=== PATIENT | male | born 1950 | race Caucasian/White ===

== ENCOUNTER 2020-09-30 07:04 | Day surgery (SDC) | payer MEDICARE, OTHER ==
[~2020-09-30] VITALS: Ht 193 cm; Wt 85.9 kg
[~2020-09-30 07:04] MED LIST: ACETAMINOPHEN325 M1 PO; ASPIRIN EC325 MG PO; CO Q-10 100 MG1 EACH; FISH OIL 1,0001 EAC1 PO; IBUPROFEN600 MG PO; LISINOPRIL20 MG; LORADAMED10 MG; METOPROLOL SUCC50 MG PO; OCUVITE TABLET1 EAC1 PO; PROBIOTIC1 EAC1; PROSTATE HEALT1 EAC1 PO; RED YEAST RICE600 MG; URINOZINC PROS1 EACH; VITAMIN D32000 UNIT PO; XANAX0.5 MG PO; ZETIA10 MG PO
[2020-09-30] MEDS ORDERED: CINNAMON500 MG PO (07:38)
--- NOTE | 2020-09-30 08:45 | NUR ---
09/30/20 0845 Juliana Jang 0833 PATIENT AWAKE OFF/ON. RESP EVEN AND UNLABORED, NC AT 2 LITERS. PATIENT DENIES PAIN OR NAUSEA.
--- NOTE | 2020-09-30 11:23 | OR ---
[facility] [address], [place] [address] Signed DATE OF OPERATION: 09/30/2020 SURGEON: Adalid Beebe MD PREOPERATIVE DIAGNOSES: 1. Personal history of colonic polyps, 2009. 2. Minimal sigmoid diverticulosis, 2014. 3. Mother with colon cancer at age 72. POSTOPERATIVE DIAGNOSES: 1. 4 mm polyp at 70 cm. 2. 4 mm polyp at 40 cm. 3. Minimal sigmoid diverticulosis. 4. Minimal external hemorrhoids. 5. Left prostate larger than right prostate. PROCEDURE: Colonoscopy with hot biopsy. ESTIMATED BLOOD LOSS: None. INDICATIONS: Leonardo is a 70-year-old gentleman asked to see me for followup colonoscopy. He has a personal history of colonic polyps as well as diverticulosis. We know his mother had colon cancer at age 72. In the office, I gave Fox pamphlet on colonoscopy. He understands the nature of the test along with its risks including, but not limited to gas bloating, crampy abdominal pain, bleeding, perforation requiring surgery, and missed diagnosis. He also understands the need for IV conscious sedation. He always takes Xanax prior to coming. However, he generally takes around 10 mg of Versed and 200 mcg of fentanyl to cover the case. He did that once again today. He had expressed understanding and wished to proceed. PROCEDURE NOTE: Donnell was taken into our endoscopy suite and placed in the left lateral decubitus position. Again, he took his Xanax before he came. He took 9 mg of Versed and 200 mcg of fentanyl to cover the case. A digital rectal exam was performed and he has a moderately enlarged indurated prostate gland. The left is certainly more prominent than the right. He also has small bilateral external hemorrhoids. He has good sphincter tone. He appears to have some sinus arrhythmia. He probably should review that more Electronically Signed By: ADALID BEEBE MD 09/30/20 1123 PATIENT NAME: WILMER THORNTON OPERATIVE REPORT DATE OF : 48 REPORT #: [id number] PHYSICIAN: ADALID BEEBE MD PCP: CHEIKH WOLF MD REPORT IS CONFIDENTIAL AND NOT TO BE RELEASED WITHOUT AUTHORIZATION [facility] [address], [place] [address] Signed closely with his primary care provider. The adult colonoscope had been inserted and advanced all around into the cecum under direct visualization of camera. It took some extra sedation and abdominal compression to get around hepatic flexure and down into the cecum itself. His prep was good. We could easily see the appendiceal orifice and the ileocecal valve. We took pictures throughout for photodocumentation. The scope was then slowly withdrawn. The two polyps were easily removed with a hot biopsy forceps. Once again, he has sigmoid diverticulosis. They were small in size, few in number, and scattered about. The rectum was unremarkable. Upon retroflexion of scope, there was no additional pathology noted above the anal canal. After this, the gas was suctioned out and the colonoscope removed. Wilmer tolerated procedure quite well. RECOMMENDATIONS: I will see Wilmer back in my office in 7 to 14 days to review his results. He might review his sinus arrhythmia with his primary care provider. Adalid Beebe MD ALB/MODL /[id number] cc: MD Cheikh Ling MD Copies: ADALID BEEBE MD, MALCOLM MD ~ Electronically Signed By: ADALID BEEBE MD 09/30/20 1123 PATIENT NAME: WILMER THORNTON OPERATIVE REPORT DATE OF : 48 REPORT #: [id number] PHYSICIAN: ADALID BEEBE MD PCP: CHEIKH WOLF MD REPORT IS CONFIDENTIAL AND NOT TO BE RELEASED WITHOUT AUTHORIZATION
--- NOTE | 2020-09-30 12:03 | EKG ---
[facility] [address] [place] [address] Signed Sinus bradycardia with premature atrial complexes in a pattern of bigeminy Otherwise normal ECG No previous ECGs available Confirmed by YOUSUF AVENDAÑO MD ([id number]) on 09/30/2020 12:03:20 PM Electronically Signed By: YOUSUF AVENDAÑO MD 09/30/20 1203 PATIENT NAME: NORBERTOAKIKO M Electrocardiogram DATE OF : 48 PHYSICIAN: YOUSUF AVENDAÑO MD REPORT #: [id number] REPORT IS CONFIDENTIAL AND NOT TO BE RELEASED WITHOUT AUTHORIZATION
--- NOTE | 2020-10-01 15:02 | PATH ---
[facility] [address], [place] [address] Signed SPECIMEN(S): A COLON POLYP 70 CM SPECIMEN(S): B COLON POLYP 40 CM SPECIMEN SOURCE: A. COLON POLYP 70 CM B. COLON POLYP 40 CM CLINICAL HISTORY: Follow up colonoscopy for history of polyps/diverticulosis; external hemorrhoids; colon polyps. MICROSCOPIC DESCRIPTION: Histologic sections of all submitted blocks are examined by light microscopy. These findings, together with the gross examination, support the pathologic diagnosis. FINAL PATHOLOGIC DIAGNOSIS: A. Colon, polyp at 70 cm, polypectomy: - Tubular adenoma with cautery artifact. - Negative for high-grade dysplasia or malignancy. B. Colon, polyp at 40 cm, polypectomy: - Hyperplastic polyp. - Negative for dysplasia or malignancy. NAL:cml:C2NR GROSS DESCRIPTION: Two specimens are received in two containers, labeled "Carrow." A. The specimen, labeled and designated "Carrow, colon polypectomy 70 cm," is received in formalin and consists of one sheldon soft tissue fragment that measures 0.2 cm in greatest dimension. The specimen is entirely submitted in cassette (A1). B. The specimen, labeled and designated "Carrow, colon polypectomy 40 cm," is received in formalin and consists of one sheldon soft tissue fragment that measures 0.2 cm in greatest dimension. The specimen is entirely submitted in cassette (B1). VB (under the direct supervision of a pathologist) The Gross Description was prepared using a voice recognition system. The report was reviewed for accuracy; however, sound-alike word errors, addition and/or deletions may occur. If there is any question about this report, please contact Client Services. PERFORMING LABORATORY: PATIENT NAME: AKIKO THORNTON PATHOLOGY DATE OF : 48 REPORT #: [id number] PHYSICIAN: COLLETTE FELDMAN PCP: JAIME WOLF MD REPORT IS CONFIDENTIAL AND NOT TO BE RELEASED WITHOUT AUTHORIZATION [facility] [address] [place] [address] Signed The technical component was [place] [address] [place] [address] (Sealing Machine Operator: Yvonne Morales MD; CLIA# [id number]). [facility], [address] [address] (CLIA# [id number]). Diagnostician: Vaishali Knowles MD Pathologist Electronically Signed 10/01/2020 Copies: ~ PATIENT NAME: AKIKO THORNTON PATHOLOGY DATE OF : 48 REPORT #: [id number] PHYSICIAN: COLLETTE FELDMAN PCP: JAIME WOLF MD REPORT IS CONFIDENTIAL AND NOT TO BE RELEASED WITHOUT AUTHORIZATION
== END 2020-09-30 09:20 | disposition home or self-care (01) ==
LOC: DS 07:04 → OPS 07:04 → DS 07:45 → OPS 07:45
PROVIDERS: ATTEND Colon & Rectal Surgery
PROC: 0DBE8ZZ Excision of Large Intestine, Via Natural or Artificial Opening Endoscopic (ICD-10-PCS; principal; 2020-09-30 07:45)
DX: D12.6 Benign neoplasm of colon, unspecified (principal); K63.5 Polyp of colon; K64.4 Residual hemorrhoidal skin tags; K57.30 Diverticulosis of large intestine without perforation or abscess without bleeding; N40.0 Benign prostatic hyperplasia without lower urinary tract symptoms; I10 Essential (primary) hypertension; E78.2 Mixed hyperlipidemia; F41.0 Panic disorder [episodic paroxysmal anxiety]; Z86.010 Personal history of colon polyps; Z85.038 Personal history of other malignant neoplasm of large intestine; Z96.659 Presence of unspecified artificial knee joint; Z87.891 Personal history of nicotine dependence; Z88.0 Allergy status to penicillin; Z88.8 Allergy status to other drugs, medicaments and biological substances; Z79.82 Long term (current) use of aspirin
CPT/HCPCS: 88305; 93005; 93010; 99153; G0500; J0690; J2250; J3010; J7121